=== PATIENT | male | born 1965 | race Caucasian/White ===

== ENCOUNTER 2024-03-04 13:03 | Emergency (ER) | payer MEDICAID ==
[~2024-03-04] VITALS: Ht 165.1 cm; Wt 71.9 kg
[2024-03-04 13:43] VITALS: BP 98/62; PULSE 88; RESP 17; TEMP 97.5; O2SAT 98
[2024-03-04] MEDS ORDERED: IBUP-1456 PO (14:29)
== END 2024-03-04 14:37 | disposition home or self-care (01) ==
LOC: ER 13:03
DX: S83.8X1A Sprain of other specified parts of right knee, initial encounter (principal); Z79.899 Other long term (current) drug therapy; X58.XXXA Exposure to other specified factors, initial encounter; Y93.89 Activity, other specified; Y92.89 Other specified places as the place of occurrence of the external cause; Y99.8 Other external cause status
CPT/HCPCS: 73562